=== PATIENT | female | born 1995 | race Two or more races ===

== ENCOUNTER → 2024-01-14 | Outpatient (CLI) | payer BC ==
[2024-01-14 17:47] LABS: HEMATOCRIT 33.2 % (36.0-47.0); HEMOGLOBIN 11.6 g/dl (12.0-15.5); MEAN CORPUSCULAR HEMOGLOBIN 31.4 pg (27.0-33.0); MEAN CORPUSCULAR HGB CONC 34.9 g/dl (32.0-36.5); PLATELET COUNT, AUTOMATED 285 10^3/uL (150-450); RED BLOOD COUNT 3.69 10^6/uL (4.00-5.40)
[2024-01-14 18:32] LABS: HIV 1&2 SCREEN NEGATIVE (NEGATIVE)
[2024-01-14 18:41] LABS: HEPATITIS C VIRUS ABY INDEX 0.03 INDEX (<0.8)
[2024-01-14 19:19] LABS: GC DNA AMPLIFICATION NEGATIVE (NEGATIVE)
== END ==
LOC: M PLALAB 15:53 → M LAB 15:53
PROVIDERS: ATTEND Specialist
DX: Z34.81 Encounter for supervision of other normal pregnancy, first trimester (principal)

== ENCOUNTER → 2024-03-06 | Outpatient (CLI) | payer BC | LOC: M WHC 08:24 | PROVIDERS: ATTEND Specialist | DX: Z34.82 Encounter for supervision of other normal pregnancy, second trimester (principal); Z3A.20 20 weeks gestation of pregnancy ==

== ENCOUNTER → 2024-04-19 | Outpatient (CLI) | payer BC ==
[2024-04-19 10:18] LABS: HEMATOCRIT 38.7 % (36.0-47.0); HEMOGLOBIN 13.1 g/dl (12.0-15.5); MEAN CORPUSCULAR HGB CONC 33.9 g/dl (32.0-36.5); MEAN CORPUSCULAR VOLUME 94.4 fl (80.0-96.0); PLATELET COUNT, AUTOMATED 268 10^3/uL (150-450); WHITE BLOOD COUNT 8.3 10^3/uL (4.0-10.0)
[2024-04-19 10:45] LABS: THYROID STIMULATING HORMONE 2.987 uIU/ML (0.55-4.78)
[2024-04-19 10:46] LABS: FREE T4 1.26 NG/DL (0.89-1.76)
== END ==
LOC: M PLALAB 07:49
PROVIDERS: ATTEND Advanced Practice Midwife
DX: O99.282 Endocrine, nutritional and metabolic diseases complicating pregnancy, second trimester (principal)

== ENCOUNTER → 2024-06-12 | Outpatient (CLI) | payer BC | LOC: M RAD 14:52 | PROVIDERS: ATTEND Obstetrics & Gynecology | DX: O26.849 Uterine size-date discrepancy, unspecified trimester (principal) ==

== ENCOUNTER → 2024-06-21 | Outpatient (REF) | payer BC | LOC: M SFHCWAGY 13:05 | PROVIDERS: ATTEND Nurse Practitioner Women's Health | DX: Z34.80 Encounter for supervision of other normal pregnancy, unspecified trimester (principal) ==

== ENCOUNTER 2024-07-19 09:57 | Inpatient (IN) | payer BC ==
[2024-07-19] VITALS (32 sets, daily range): BP systolic 89–112; BP diastolic 52–74; O2SAT 98
[~2024-07-19] VITALS: Ht 175.3 cm; Wt 81.1 kg
[2024-07-19] MEDS ORDERED: LEVO50TA5 PO (10:19)
[2024-07-19] MEDS ORDERED: PREN200C PO (10:19)
[2024-07-19] MEDS ORDERED: HOME MED LIST COMPLETE! XX SCH (10:20)
[2024-07-19] MEDS ORDERED: CARBOPROST TROMETHAMINE 250 MCG/ML AMP IM PRN (11:00)
[2024-07-19] MEDS ORDERED: LIDOCAINE 1% MDV 20ML VIAL INFIL PRN (11:00)
[2024-07-19] MEDS ORDERED: TRANEXAMIC ACID INJection 1,000 MG in NS 100 ML IV PRN (11:00)
[2024-07-19] MEDS ORDERED: OXYTOCIN DRIP 30 UNITS in IV 1 EA IV PRN (11:00)
[2024-07-19] MEDS ORDERED: OXYTOCIN INJ 10UNITS/ML 1ML VIAL IM PRN (11:00)
[2024-07-19] MEDS: OXYTOCIN DRIP 30 UNITS in IV 1 EA IV SCH ×2 (11:16→20:45)
[2024-07-19] MEDS: LR 1,000 ML IV SCH (11:16)
[2024-07-19 11:36] LABS: HEMATOCRIT 37.2 % (36.0-47.0); MEAN CORPUSCULAR HEMOGLOBIN 31.9 pg (27.0-33.0); MEAN CORPUSCULAR HGB CONC 34.9 g/dl (32.0-36.5); MEAN CORPUSCULAR VOLUME 91.2 fl (80.0-96.0); PLATELET COUNT, AUTOMATED 214 10^3/uL (150-450); RED BLOOD COUNT 4.08 10^6/uL (4.00-5.40)
[2024-07-19 12:36] LABS: HEPATITIS C VIRUS ABY INDEX 0.05 INDEX (<0.8)
[2024-07-19] MEDS ORDERED: diphenhydrAMINE 50MG/ML VIAL IV PRN (15:30)
[2024-07-19] MEDS ORDERED: LR 500 ML IV PRN (15:30)
[2024-07-19] MEDS ORDERED: EPIDURAL/PCA KEYS XX PRN (15:30)
[2024-07-19] MEDS ORDERED: NALOXONE INJ 0.4MG/1ML VIAL IV PRN (15:30)
[2024-07-19] MEDS ORDERED: ePHEDrine SULFATE 25 MG/5 ML(5MG/ML) SYRINGE IVP PRN (15:30)
[2024-07-19] MEDS: FENTANYL/ROPIVACAINE/NACL BAG 100 ML EPIDURAL SCH (15:59)
[2024-07-19] MEDS: METHYLERGONOVINE MALEATE 0.2MG/ML 1ML VIAL IM PRN (20:14)
[2024-07-19] MEDS ORDERED: METHYLERGONOVINE MALEATE 0.2 MG TAB PO PRN (20:25)
[2024-07-19] MEDS ORDERED: DIBUCAINE 1% OINTMENT 30GM TOP PRN (20:25)
[2024-07-19] MEDS ORDERED: ACETAMINOPHEN TAB 650MG DOSE (2X325MG) PO PRN (20:25)
[2024-07-19] MEDS: ONDANSETRON 4MG 2ML VIAL IV PRN (20:26)
[2024-07-19] MEDS: ACETAMINOPHEN 500 MG TAB PO PRN (20:38)
[2024-07-19] MEDS: FIORICET TAB PO SCH (22:13)
[2024-07-20] MEDS: IBUPROFEN 800 MG TAB PO PRN (04:57)
[2024-07-20 06:00] VITALS: BP 108/69; O2SAT 98
[2024-07-20] MEDS: LEVOTHYROXINE 112MCG TABLET (0.112MG) PO SCH (08:12)
[2024-07-20] MEDS: PRENATAL VITAMINS CHEWABLE TABLET PO SCH (09:30)
[2024-07-20] MEDS: RHO(D) IMMUNE GLOBULIN/MALTOSE 500MCG(2500IU)/2.2ML VIAL (WINRHO) IM SCH (17:49)
[2024-07-20 18:00] VITALS: BP 112/64; O2SAT 98
[2024-07-20] MEDS: DOCUSATE SODIUM 100MG CAPSULE PO PRN (19:32)
[2024-07-21 05:57] VITALS: BP 101/59; O2SAT 99
[2024-07-21] MEDS: MEASLES,MUMPS,RUBELLA VACCINE INJ (MMR-II) SC.IMMUN ONE (08:29)
[2024-07-21] MEDS: IBUPROFEN 600MG TAB PO PRN (08:35)
[2024-07-21] MEDS ORDERED: ACET-683 PO (09:57)
[2024-07-21] MEDS ORDERED: COLA100C5 PO (09:57)
[2024-07-21] MEDS ORDERED: IBUP-1022 PO (09:57)
== END 2024-07-21 12:05 | disposition home or self-care (01) | DRG 560 ==
LOC: M LDI 09:57 → M OBS 22:43
PROVIDERS: ADMIT Advanced Practice Midwife; ATTEND Advanced Practice Midwife
PROC: 10E0XZZ Delivery of Products of Conception, External Approach (ICD-10-PCS; principal; 2024-07-19)
PROC: 3E033VJ Introduction of Other Hormone into Peripheral Vein, Percutaneous Approach (ICD-10-PCS; 2024-07-19)
PROC: 10907ZC Drainage of Amniotic Fluid, Therapeutic from Products of Conception, Via Natural or Artificial Opening (ICD-10-PCS; 2024-07-19)
DX: O99.284 Endocrine, nutritional and metabolic diseases complicating childbirth (principal); E03.9 Hypothyroidism, unspecified; Z37.0 Single live birth; Z3A.40 40 weeks gestation of pregnancy; Z79.890 Hormone replacement therapy